=== PATIENT | female | born 1945 ===

== ENCOUNTER 2016-12-28 19:16 | Emergency (ER) | payer SELFPAY | END 2016-12-28 20:49 | disposition home or self-care (01) | LOC: ER1 19:16 | DX: S46.911A Strain of unspecified muscle, fascia and tendon at shoulder and upper arm level, right arm, initial encounter (principal); X58.XXXA Exposure to other specified factors, initial encounter | CPT/HCPCS: 73030; 96372; 99283; J1100; J1885 ==